=== PATIENT | male | born 1965 | race Caucasian/White ===

== ENCOUNTER 2022-12-25 11:30 | Day surgery (SDC) | payer OTHER ==
--- NOTE | 2022-12-23 14:28 | RAD REPORT ---
EXAM DESCRIPTION: RAD - Chest Pa And Lat (2 Views) - 12/23/2022 2:21 pm CLINICAL HISTORY: pre op for cath flow Chest pain. COMPARISON: Femur Left dated 03/19/2013 FINDINGS: The lungs are clear. The heart is normal in size. No displaced fractures. Sternotomy wires . IMPRESSION: No acute or concerning finding suspected. The USPSTF recommends annual screening for lung cancer with low-dose CT (LDCT) in adults aged 50 to 80 years who have a 20 pack-year smoking history and currently smoke or have quit within the past 15 years.
[2022-12-23 14:30] LABS: Absolute Lymphocytes (CBC) 2.5 K/uL (0.7-4.9); Hematocrit 47.1 % (39.6-49.0); Lymphocytes % 30.1 % (15.3-44.8); MCV 91.1 fL (80-100); MPV 7.8 fL (7.6-11.3); RBC Red Blood Cell Count 5.17 M/uL (4.33-5.43)
[2022-12-23 14:37] LABS: Protime INR 1.06
[2022-12-23 14:56] LABS: Potassium 4.2 mmol/L (3.5-5.1)
[2022-12-25] MEDS ORDERED: LIDOCAINE 1% 20 ML MDV ONE (13:10)
[2022-12-25] MEDS ORDERED: HEPA 1000U/500MLS 2,000 UNIT/1,000 ML BAG IV ONE (13:10)
[2022-12-25] MEDS ORDERED: HEPARIN 5000 UNIT/ML 1 ML VIAL ONE (13:11)
[2022-12-25] MEDS ORDERED: ASPIRIN 325 MG TAB ONE (13:11)
[2022-12-25] MEDS ORDERED: CLOPIDOGREL 75 MG TABLET ONE (13:11)
[2022-12-25] MEDS ORDERED: FENTANYL CITR 100 MCG/2 ML ONE (13:11)
[2022-12-25] MEDS ORDERED: VERAPAMIL HCL 10 MG/4 ML VIAL IV ONE (13:11)
[2022-12-25] MEDS ORDERED: TICAGRELOR 90 MG TABLET PO ONE (13:11)
[2022-12-25] MEDS ORDERED: MIDAZOLAM HCL 2 MG/2 ML INJ ONE ×2 (13:11→13:41)
[2022-12-25] MEDS ORDERED: ATROPINE SULF 1 MG/10 ML SYR IV ONE (13:12)
[2022-12-25] MEDS ORDERED: HEPARIN 10,000 UNIT/10 ML VIAL IV ONE (14:00)
[2022-12-25] MEDS ORDERED: REGADENOSON 0.4 MG/5 ML SYR IV ONE (14:00)
--- NOTE | 2022-12-25 16:02 | OP ---
Date of Procedure: 12/25/2022 Surgeon: IRENE HERNANDEZ Procedures Performed: 1.Selective coronary angiogram. 2.Left heart catheterization. 3.FFR of the mid RCA, moderate disease which was insignificant at 0.81. Access: Right radial artery 6-Bulgarian closed with TR band. Complications: None. Indication: Chest pain with abnormal stress test. Bleeding: Less than 10 mL. Anesthesia: Total sedation time was 30 minutes. Used fentanyl and Versed. Description Of Procedure: After risks, benefits, alternatives were explained, the patient agreed to procedure and signed informed consent. The patient was brought into the cardiac catheterization [facility], prepped and draped in the usual sterile fashion. Then, I accessed right radial artery using pediatric micropuncture kit, placed a 6-Bulgarian Slender sheath and took 5-Bulgarian Dryden 4.0 catheter in to the aortic root, engaged left main and the right coronary artery, took standard views and the cath eter was pushed over the wire into the LV, measured the LVEDP and pullback did not record any gradien t. Then, we gave systemic heparin to assure ACT level above 250 and then I took a Comet FFR wire int o the aortic root and pressures were equalized and then the wire was advanced into the distal RCA. F FR was performed using Lexiscan and then pulling the wire back, there was no drift. Then, final vince ogram was satisfactory. Then, I removed the catheter and sheath and placed TR band with good hemosta sis. Findings: 1.Left main; large and normal. 2.LAD; large vessel with no significant disease. Diagonal branches appear normal. 3.Left circumflex; [id number] sized vessel and the OM1 branch is large and has diffuse 40% st enosis. 4.RCA; large and dominant with mid long segment that has 50% to 60% stenosis, but FFR was 0.81. 5.LVEDP normal at 7 mmHg. Conclusion: 1.Moderate RCA stenosis and moderate OM1 stenosis. 2.Normal LVEDP. Recommendation: Medical management. SR/MODL Voice ID: [id number] Report ID: [id number]
[2022-12-25 16:36] VITALS: O2SAT 97
[2022-12-25 16:51] VITALS: BP 104/47
== END 2022-12-25 16:52 | disposition home or self-care (01) ==
LOC: CCL 11:30
PROVIDERS: ATTEND Internal Medicine
DX: I25.10 Atherosclerotic heart disease of native coronary artery without angina pectoris (principal); I73.9 Peripheral vascular disease, unspecified; I10 Essential (primary) hypertension; R09.89 Other specified symptoms and signs involving the circulatory and respiratory systems; E78.5 Hyperlipidemia, unspecified; F17.210 Nicotine dependence, cigarettes, uncomplicated; Z79.899 Other long term (current) drug therapy; Z82.49 Family history of ischemic heart disease and other diseases of the circulatory system
CPT/HCPCS: 85025; 80048; 36415; 85610; 85347; 85730; 71046; 93458; 93571; C1893; J2001; J1644 ×2; J2250; J3010; J2785; C1769; J0461

== ENCOUNTER 2024-07-24 08:54 | Observation (INO) | payer OTHER ==
--- OUTSIDE RECORDS SUMMARY | 2024-07-24 08:58 | XMS REPORT | Continuity of Care Document ---
Author Name Unknown Address [address] [place] [address] [address] th[address] Address [address] [facility] [place]. [address] [place] [address] Care Team Providers Care System Administration Advisor Name Role Phone Unavailable Unavailable Unavailable Encounters Start Date/Time End Date/Time Encounter Type Admission Type Attending Clinicians Care Facility Care Department Encounter ID Source 2024-05-01 09:42:46 2024-05-01 09:42:46 Outpatient [facility] [id number] Feliz Gallegos
[2024-07-24] MEDS ORDERED: IPRATROPIUM BROM 0.5MG/2.5ML ONE (09:09)
[2024-07-24] MEDS ORDERED: ALBUTEROL 2.5 MG/3 ML NEB SOL ONE (09:09)
[2024-07-24] MEDS ORDERED: NITROGLYCERIN 0.4 MG/TAB SL ONE (09:22)
[2024-07-24] MEDS ORDERED: ASPIRIN 81 MG CHEWABLE TABLET ONE (09:22)
[2024-07-24 09:27] LABS: Absolute Eosinophils 0.2 K/uL (0-0.5); Absolute Lymphocytes (CBC) 1.8 K/uL (0.7-4.9); Absolute Monocytes 0.5 K/uL (0.1-1.3); Absolute Neutrophil 6.9 K/uL (1.8-8.0); Basophils % 0.5 % (0-1.3); Eosinophils % 1.9 % (0-4.4); Hematocrit 42.4 % (39.6-49.0); MCH 30.1 pg (27.0-35.0); MCV 91.1 fL (80-100); MPV 8.1 fL (7.6-11.3); Neutrophils % 73.6 % (41.7-73.7); Platelets 210 thou/uL (152-406); RBC Red Blood Cell Count 4.65 M/uL (4.33-5.43); Red Cell Distribution Width 14.7 % (12.1-15.2)
[2024-07-24 09:29] LABS: PT Prothrombin Time 15.6 SECONDS (9.4-12.5); Protime INR 1.41
[2024-07-24 09:47] LABS: Albumin 4.1 g/dL (3.4-5.0); Albumin/Globulin Ratio 1.1 (1.1-1.8); Anion Gap 3.9 mEq/L (5.0-15.0); Bilirubin Direct 0.3 mg/dL (0-0.2); Bilirubin Indirect, Calculated 0.6 mg/dL (0.2-0.8); Bilirubin Total 0.9 mg/dL (0.2-1.0); Globulin 3.9 g/dL (2.3-3.5); Magnesium 2.1 mg/dL (1.6-2.4); Potassium 3.9 mEq/L (3.5-5.1); Troponin High Sensitivity 29.5 pg/mL (<58.9)
--- NOTE | 2024-07-24 10:07 | RAD REPORT ---
EXAM DESCRIPTION: CT - Head Brain Wo Cont - 07/24/2024 9:40 am CLINICAL HISTORY: DIZZINESS COMPARISON: No comparisons TECHNIQUE: Noncontrast head CT images were obtained without IV contrast. Multiplanar reformats were generated and reviewed. All CT scans are performed using dose optimization technique as appropriate and may include automated exposure control or mA/KV adjustment according to patient size. FINDINGS: No intracranial hemorrhage, mass, or edema. Midline structures are unremarkable. Mild diffuse parenchymal volume loss. Martini-white matter differentiation is preserved, without evidence of acute infarct. No abnormal extra- axial fluid collections. Mastoid air cells and visualized portions of the paranasal sinuses are clear. No acute bony findings. IMPRESSION: No evidence of an acute intracranial process.
--- NOTE | 2024-07-24 11:35 | RAD REPORT ---
EXAM DESCRIPTION: RADChest Single View07/24/2024 9:32 am CLINICAL HISTORY: CHEST PAIN COMPARISON: Chest Pa And Lat (2 Views) dated 12/23/2022; Head Brain Wo Cont dated 07/24/2024 TECHNIQUE: Portable AP view of the chest. FINDINGS: The lungs are clear. No pneumothorax or effusion. The cardiomediastinal contours are unch anged. IMPRESSION: No acute cardiopulmonary process.
--- NOTE | 2024-07-24 12:59 | ER ---
Nurse's Notes [facility] Name: Conor Rosado Jr Age: 58 yrs Sex: Male : 1965 Arrival Date: 07/24/2024 Time: 08:54 Bed 8 Private MD: Diagnosis: Dyspnea;Angina pectoris, unspecified Presentation: 07/24 09:08 Chief complaint: Patient states: he started having chest pressure Wednesday, that got ap3 worse last night. patient reports his pain to be a pressure feeling along with shortness of breath. Coronavirus screen: At this time, the client does not indicate any symptoms associated with coronavirus-19. Ebola Screen: No symptoms or risks identified at this time. Initial Sepsis Screen: Does the patient meet any 2 criteria? No. Patient's initial sepsis screen is negative. Does the patient have a suspected source of infection? No. Patient's initial sepsis screen is negative. Risk Assessment: Do you want to hurt yourself or someone else? Patient reports no desire to harm self or others. Onset of symptoms was July 22, 2024. 09:08 Method Of Arrival: Ambulatory ap3 09:08 Acuity: BECKY 2 ap3 Triage Assessment: 09:11 General: Appears uncomfortable, Behavior is cooperative, appropriate for age. Pain: ap3 Complains of pain in chest Quality of pain is described as pressure. Neuro: Level of Consciousness is awake, alert, obeys commands, Oriented to person, place, time, situation. Cardiovascular: Reports chest pain, shortness of breath. Respiratory: Airway is patent Respiratory effort is even, unlabored, Respiratory pattern is regular, symmetrical. Historical: - Allergies: 09:09 No Known Allergies; ap3 - Home Meds: 09:09 Xarelto oral [Active]; Metoprolol Tartrate Oral [Active]; Lisinopril Oral [Active]; ap3 aspirin 81 mg Oral tablet,chewable [Active]; - PMHx: 09:09 Atrial fibrillation; Hypertensive disorder; ap3 - Immunization history:: Client reports having NOT received the Covid vaccine. - Infectious Disease History:: Denies. - Social history:: Smoking status: Patient reports the use of cigarette tobacco products, smokes one pack cigarettes per day. Screenin:20 [facility] ED Fall Risk Assessment (Adult) History of falling in the last 3 months, dd2 including since admission No falls in past 3 months (0 pts) Confusion or Disorientation No (0 pts) Intoxicated or Sedated No (0 pts) Impaired Gait No (0 pts) Mobility Assist Device Used No (0 pt) Altered Elimination No (0 pt) Score/Fall Risk Level 0 - 2 = Low Risk Oriented to surroundings, Maintained a safe environment, Hourly rounding (assess needs \T\ fall precautionary measures) done. Abuse screen: Denies threats or abuse. Nutritional screening: No deficits noted. Tuberculosis screening: No symptoms or risk factors identified. Assessment: 09:20 General: Appears in no apparent distress. Behavior is calm, cooperative. Pain: dd2 Complains of pain in chest Pain does not radiate. Pain Quality of pain is described as pressure, Pain began 2-3 days ago. Neuro: No deficits noted. Cardiovascular: No deficits noted. Reports chest pain, Heart tones S1 S2 Rhythm is atrial fibrillation With PVC's Chest pain quality is pressure. Respiratory: No deficits noted. GI: No deficits noted. : No deficits noted. EENT: No deficits noted. Derm: No deficits noted. Musculoskeletal: No deficits noted. Vital Signs: 09:08 BP 146 / 88; Pulse 55; Resp 18; Temp 98; Pulse Ox 98% ; Weight 104.33 kg; Height 6 ft. ap3 1 in. ; 09:54 BP 119 / 49; Pulse 42; Resp 15; Pulse Ox 98% ; dd2 10:41 BP 103 / 56; Pulse 37; Resp 15; Pulse Ox 97% ; dd2 11:48 BP 111 / 64; Pulse 44; Resp 15; Pulse Ox 94% ; dd2 09:08 Body Mass Index 30.34 (104.33 kg, 185.42 cm) ap3 ED Course: 08:55 Patient arrived in ED. mg5 08:58 Antoine Villanueva PA is PHCP. cp 08:58 Anil Sena MD is Attending Physician. cp 09:06 MARJAN SMITH, KEVIN is Primary Nurse. dd2 09:09 Triage completed. ap3 09:12 EKG done, by ED staff, reviewed by Antoine GILBERT. ap3 09:12 Basic Metabolic Panel Sent. ko1 09:12 CBC with Diff Sent. ko1 09:12 LFT's Sent. ko1 09:12 Magnesium Sent. ko1 09:12 NT PRO-BNP Sent. ko1 09:12 PT-INR Sent. ko1 09:12 Troponin HS Sent. ko1 09:20 No provider procedures requiring assistance completed. Initial Neb Treatment Given as dd2 ordered Patient tolerated procedure well without adverse effect. Inserted saline lock: 20 gauge in right antecubital area, using aseptic technique. Blood collected. Flushed with 10 mL NS. Patient maintains SpO2 saturation greater than 95% on room air. 09:20 Patient has correct armband on for positive identification. Bed in low position. Call dd2 light in reach. Side rails up X 1. Provided Education on: CALL LIGHT, MEDICATIONS, LABS. Client placed on continuous cardiac and pulse oximetry monitoring. NIBP monitoring applied. case monitor on. Door closed. Warm blanket given. 09:20 Arm band placed on left wrist. Patient placed in an exam room, on a stretcher, on dd2 library monitor. 09:34 XRAY Chest (1 view) In Process Unspecified. EDMS 09:41 CT Head Brain wo Cont In Process Unspecified. EDMS 12:58 Yasir Morgan is Hospitalizing Provider. cp 13:47 at the bedside discussing plan of care. ane 13:55 CM met with and his sister Zoë at the bedside in the ED exam room. ane Patient identified by name and . Demographic sheet confirmed. Mr Rosado states he lives alone in a single story home. Patient reports prior to admission, he performs ADLs independently and without physical limitations. Patient reports he does not have an MPOA in place at this time. He states his prefers to return home upon discharge and that he will drive himself home when he is discharged. CM team will continue to follow and coordinate care. 15:14 Patient admitted, IV remains in place. dd2 Administered Medications: 09:11 Drug: DuoNeb Nebulize (2.5 mg - 0.5 mg) 3 ml Nebulizer once Route: Nebulizer; ko1 09:41 Follow up: Response: No adverse reaction dd2 09:23 Drug: Nitroglycerin Sublingual 0.4 mg Sublingual once Route: Sublingual; dd2 09:26 Follow up: Response: No adverse reaction dd2 09:23 Drug: Aspirin PO Chewable Tablet 324 mg PO once; 81 mg tablets x 4 Route: PO; dd2 09:53 Follow up: Response: No adverse reaction dd2 Medication: 09:20 VIS not applicable for this client. dd2 Outcome: 12:59 Decision to Hospitalize by Provider. cp 15:14 Admitted to Identification And Records Commander accompanied by nurse, via stretcher, with chart, dd2 15:14 Condition: stable 15:14 Instructed on the need for admit, 15:15 Patient left the ED. dd2 Signatures: Dispatcher [employer] EDMS Antoine Villanueva PA PA cp Cora Arevalo RN RN ap3 Taylor Logan, KEVIN RN teja1 Renate Parks mg5 Bhavya Flores RN RN ane DAVIS, DIANA, RN RN dd2
--- NOTE | 2024-07-24 13:00 | EDPHYS ---
Physician Documentation [facility] Name: Conor Rosado Jr Age: 58 yrs Sex: Male : 1965 Arrival Date: 07/24/2024 Time: 08:54 Bed 8 Private MD: ED Physician Anil Sena HPI: 07/24 09:10 This 58 yrs old Male presents to ER via Ambulatory with complaints of Chest Pain. cp 09:10 The patient or guardian reports chest pain that is located primarily in the anterior cp chest wall, left. Onset: 2 day(s) ago. 09:10 Associated signs and symptoms: Pertinent positives: dizziness, shortness of breath, cp Pertinent negatives: abdominal pain, diaphoresis, headache, lower extremity swelling, syncope, vomiting. The chest pain is described as a pressure. Duration: The patient or guardian reports multiple episodes, that are intermittent. Modifying factors: the symptoms are aggravated by activity. Historical: - Allergies: 09:09 No Known Allergies; ap3 - Home Meds: 09:09 Xarelto oral [Active]; Metoprolol Tartrate Oral [Active]; Lisinopril Oral [Active]; ap3 aspirin 81 mg Oral tablet,chewable [Active]; - PMHx: 09:09 Atrial fibrillation; Hypertensive disorder; ap3 - Immunization history:: Client reports having NOT received the Covid vaccine. - Infectious Disease History:: Denies. - Social history:: Smoking status: Patient reports the use of cigarette tobacco products, smokes one pack cigarettes per day. ROS: 09:15 Constitutional: Negative for body aches, chills, fever, poor PO intake, cp 09:15 Eyes: Negative for injury, pain, redness, and discharge, cp 09:15 ENT: Negative for drainage from ear(s), ear pain, sore throat, difficulty swallowing, difficulty handling secretions, 09:15 Cardiovascular: Positive for chest pressure, Negative for edema, palpitations, 09:15 Respiratory: Positive for shortness of breath, on exertion. Negative for cough, 09:15 Abdomen/GI: Negative for abdominal pain, vomiting, diarrhea, constipation, 09:15 Skin: Negative for cellulitis, rash, 09:15 Neuro: Positive for dizziness, Negative for altered mental status, headache, weakness, Exam: 09:20 Constitutional: The patient appears in no acute distress, alert, awake, cp non-diaphoretic, non-toxic, well developed, well nourished, uncomfortable, 09:20 Head/Face: Normocephalic, atraumatic. cp 09:20 Eyes: Periorbital structures: appear normal, Conjunctiva: normal, no exudate, no injection, Sclera: no appreciated abnormality, Lids and lashes: appear normal, bilaterally, 09:20 ENT: External ear(s): are unremarkable, Nose: is normal, Mouth: Lips: moist, Oral mucosa: pink and intact, moist, Posterior pharynx: Airway: no evidence of obstruction, patent, 09:20 Neck: ROM/movement: is normal, is supple, without pain, no range of motions limitations, 09:20 Chest/axilla: Inspection: normal, Palpation: crepitus, is not appreciated, tenderness, is not appreciated, 09:20 Cardiovascular: Rate: bradycardic, Rhythm: regular, Edema: is not appreciated, JVD: is not appreciated, 09:20 Respiratory: the patient does not display signs of respiratory distress, Respirations: labored breathing, that is mild, Breath sounds: decreased breath sounds, that are mild, throughout, stridor, is not appreciated, wheezing: that is mild, is heard diffusely, 09:20 Abdomen/GI: Inspection: abdomen appears normal, Palpation: abdomen is soft and non-tender, in all quadrants, 09:20 Back: pain, is absent, ROM is normal, 09:20 Neuro: Orientation: to person, place \T\ time. Mentation: is normal, Cerebellar function: is grossly normal, Motor: moves all fours, strength is normal, Sensation: no obvious gross deficits, Vital Signs: 09:08 BP 146 / 88; Pulse 55; Resp 18; Temp 98; Pulse Ox 98% ; Weight 104.33 kg; Height 6 ft. ap3 1 in. ; 09:54 BP 119 / 49; Pulse 42; Resp 15; Pulse Ox 98% ; dd2 10:41 BP 103 / 56; Pulse 37; Resp 15; Pulse Ox 97% ; dd2 11:48 BP 111 / 64; Pulse 44; Resp 15; Pulse Ox 94% ; dd2 09:08 Body Mass Index 30.34 (104.33 kg, 185.42 cm) ap3 MDM: 08:58 Patient medically screened. cp 11:40 HEART Score: History: Highly Suspicious (2), ECG: Non specific repolarization cp disturbance / LBTB / PM (1), Age: > 45 and < 65 years (1), Risk Factors: 1 or 2 risk factors (1), [Hypertension] [Active Smoker] Troponin: < or = 1 x Normal Limit (0). 11:45 Data reviewed: vital signs, nurses notes, lab test result(s), EKG, radiologic studies, cp plain films, and as a result, I will admit patient. 11:45 Differential diagnosis: abnormal EKG, acute myocardial infarction, acute pericarditis, cp anxiety, coronary artery disease congestive heart failure pleurisy, pneumonia, pneumothorax, stable angina, unstable angina, COPD. The patient was given aspirin in the Emergency Department. Consideration of Admission/Observation Patient was admitted/placed on observation. I considered the following discharge prescriptions or medication management in the emergency department Medications were administered in the Emergency Department. See JAN. 07/24 09:06 Order name: Basic Metabolic Panel; Complete Time: 10:07 07/24 10:07 Interpretation: Normal except: CO2 33; ANION GAP 3.9; GLUC 120. 07/24 09:06 Order name: CBC with Diff; Complete Time: 10:07 07/24 09:06 Order name: LFT's; Complete Time: 10:07 07/24 10:21 Interpretation: Normal except: BILID 0.3; GLOB 3.9. 07/24 09:06 Order name: Magnesium; Complete Time: 10:07 07/24 09:06 Order name: NT PRO-BNP; Complete Time: 10:07 07/24 10:21 Interpretation: Reviewed. 07/24 09:06 Order name: PT-INR; Complete Time: 10:07 07/24 09:06 Order name: Troponin HS; Complete Time: 10:07 07/24 12:03 Order name: Troponin High Sensitivity 07/24 13:16 Order name: T4 Free [facility] 07/24 13:16 Order name: Thyroid Stimulating Hormone [facility] 07/24 13:16 Order name: Basic Metabolic Panel [facility] 07/24 13:16 Order name: Basic Metabolic Panel [facility] 07/24 13:16 Order name: Basic Metabolic Panel [facility] 07/24 13:16 Order name: Basic Metabolic Panel EDMS 07/24 13:16 Order name: Basic Metabolic Panel EDMS 07/24 13:16 Order name: Basic Metabolic Panel EDMS 07/24 13:16 Order name: CBC with Automated Diff EDMS 07/24 13:16 Order name: CBC with Automated Diff EDMS 07/24 13:16 Order name: CBC with Automated Diff EDMS 07/24 13:16 Order name: CBC with Automated Diff EDMS 07/24 13:16 Order name: CBC with Automated Diff EDMS 07/24 13:16 Order name: CBC with Automated Diff EDMS 07/24 13:16 Order name: Hemoglobin A1c EDMS 07/24 13:16 Order name: Hemoglobin A1c EDMS 07/24 13:16 Order name: Lipid Profile EDMS 07/24 13:16 Order name: Lipid Profile EDMS 07/24 13:16 Order name: Magnesium EDMS 07/24 13:16 Order name: Magnesium EDMS 07/24 13:16 Order name: Magnesium EDMS 07/24 13:16 Order name: Magnesium EDMS 07/24 13:16 Order name: Magnesium EDMS 07/24 13:16 Order name: Magnesium EDMS 07/24 13:16 Order name: Phosphorus EDMS 07/24 13:16 Order name: Phosphorus EDMS 07/24 13:16 Order name: Phosphorus EDMS 07/24 13:16 Order name: Phosphorus EDMS 07/24 13:16 Order name: Phosphorus EDMS 07/24 13:16 Order name: Phosphorus EDMS 07/24 13:16 Order name: Troponin High Sensitivity EDMS 07/24 13:16 Order name: Troponin High Sensitivity EDMS 07/24 13:16 Order name: Troponin High Sensitivity EDMS 07/24 09:06 Order name: XRAY Chest (1 view); Complete Time: 11:37 cp 07/24 11:37 Interpretation: Report review. cp 07/24 09:32 Order name: CT Head Brain wo Cont; Complete Time: 10:21 cp 07/24 10:21 Interpretation: Report reviewed. cp 07/24 13:16 Order name: Echo with Doppler EDMS 07/24 09:06 Order name: Cardiac monitoring; Complete Time: 09:12 cp 07/24 09:06 Order name: EKG - Nurse/Tech; Complete Time: 09:12 cp 07/24 09:06 Order name: IV Saline Lock; Complete Time: 09:12 cp 07/24 09:06 Order name: Labs collected and sent; Complete Time: 09:12 cp 07/24 09:06 Order name: O2 Per Protocol; Complete Time: 09:12 cp 07/24 09:06 Order name: O2 Sat Monitoring; Complete Time: 09:12 cp Administered Medications: 09:11 Drug: DuoNeb Nebulize (2.5 mg - 0.5 mg) 3 ml Nebulizer once Route: Nebulizer; ko1 09:41 Follow up: Response: No adverse reaction dd2 09:23 Drug: Nitroglycerin Sublingual 0.4 mg Sublingual once Route: Sublingual; dd2 09:26 Follow up: Response: No adverse reaction dd2 09:23 Drug: Aspirin PO Chewable Tablet 324 mg PO once; 81 mg tablets x 4 Route: PO; dd2 09:53 Follow up: Response: No adverse reaction dd2 Disposition Summary: 07/24/24 12:59 Hospitalization Ordered Notes: Hospitalization Status: Observation cp Provider: Yasir Morgan cp Condition: Stable cp Problem: new cp Symptoms: have improved cp Bed/Room Type: Standard cp Location: [facility] ER HOLD(07/24/24 13:49) bd Room Assignment: ERHOLD-(07/24/24 13:49) bd Diagnosis - Dyspnea cp - Angina pectoris, unspecified cp Forms: - Medication Reconciliation Form cp - SBAR form cp - Leadership Thank You Letter cp Addendum: 07/28/2024 07:44 I was immediately available for consultation during this patient's visit. I did not e c2 personally see the patient or discuss the patient with the CRISTIN. . Signatures: Dispatcher [employer] EDMS Summer Marc bd Antoine Villanueva PA PA cp Cora Arevalo RN RN ap3 Taylor Logan RN RN ko1 Anil Sena MD MD ec2 MARJAN SMITH, RN RN dd2 Corrections: (The following items were deleted from the chart) 07/24 09:07 09:07 BASIC METABOLIC PANEL+C.LAB.BRZ ordered. EDMS EDMS 09:07 09:07 CBC+H.LAB.BRZ ordered. EDMS EDMS 09:07 09:07 HEPATIC FUNCTION+C.LAB.BRZ ordered. EDMS EDMS 09:07 09:07 MAGNESIUM+C.LAB.BRZ ordered. EDMS EDMS 09:07 09:07 PROBNP+C.LAB.BRZ ordered. EDMS EDMS 09:07 09:07 PROTIME (+INR)+COAG.LAB.BRZ ordered. EDMS EDMS 09:07 09:07 Troponin High Sensitivity+C.LAB.BRZ ordered. EDMS EDMS 09:07 09:07 Chest Single View+RAD.RAD.BRZ ordered. EDMS EDMS 09:32 09:32 Head Brain Wo Cont+CT.RAD.BRZ ordered. EDMS EDMS 13:46 12:59 cp bd 13:49 12:59 Telemetry/MedSurg (observation) cp bd 13:49 13:46 430 bd bd 13:49 13:49 bd bd
[2024-07-24] MEDS ORDERED: ACETAMINOPHEN 325 MG TABLET PO PRN (13:07)
[2024-07-24] MEDS ORDERED: MORPHINE 2 MG/ML SYR IV PRN (13:07)
[2024-07-24] MEDS ORDERED: NITROGLYCERIN 0.4 MG/TAB SL PRN (13:15)
--- NOTE | 2024-07-24 13:22 | P.HP ---
Certification for Inpatient Patient admitted to: Observation With expected LOS: <2 Midnights Patient will require the following post-hospital care: None Practitioner: I am a practitioner with admitting privileges, knowledge of patient current condition, hospital course, and medical plan of care. Services: Services provided to patient in accordance with Admission requirements found in Title 42 Section 412.3 of the Code of Federal Regulations Patient History Date of Service: 07/24/24 History of Present Illness: Conor Rosado is a 58 year old male with Pmhx atrial fibrillation and hypertensive disorder who presents to the ED with chief complaint of chest tightness and shortness of breath associated with dizziness, lightheadedness and nausea. He reports seeing his heart rate drop during times of chest pressure. He reports going to Dr. Rashid's office and was unable to be seen, he was directed to come to the ED. While in the ED he was given nitroglycerin that helped alleviate the chest pressure. Upon evaluation he is standing, in no acute distress, chest pain and pressure relieved, complaining of being thirsty. He reports having a heart history with atrial fibrillation and is currently taking Xarelto. He reports smoking 1 pack cigarettes daily which is dramatically decreased. Troponin and EKG both negative. Initial vitals BP 146 / 88; Pulse 55; Resp 18; Temp 98; Pulse Ox 98% Laboratory evaluation troponin 29.5, BNP 1274, H&H Chest x-ray reports " The lungs are clear. No pneumothorax or effusion. The cardiomediastinal contours are unchanged. IMPRESSION: No acute cardiopulmonary process." CT head reports "No intracranial hemorrhage, mass, or edema. Midline structures are unremarkable. Mild diffuse parenchymal volume loss. Martini-white matter differentiation is preserved, without evidence of acute infarct. No abnormal extra-axial fluid collections. Mastoid air cells and visualized portions of the paranasal sinuses are clear. No acute bony findings. IMPRESSION: No evidence of an acute intracranial process Conor will be admitted to hospitalist service for further evaluation of chest pain, Dr. Siddiqi consulted Allergies No Known Allergies Allergy (Verified 12/23/22 13:58) Home Medications: Aspirin 07/24/24 Atorvastatin Calcium 07/24/24 Buspirone HCl [Buspar*] 07/24/24 Eszopiclone 07/24/24 Lisinopril [Zestril] 07/24/24 Metoprolol Tartrate 07/24/24 Rivaroxaban [Xarelto] 07/24/24 - Past Medical/Surgical History -: Atrial fibrillation on Xarelto -: Hypertension -: CAD Past Surgical History: Reviewed- Non-Contributory - Social History Smoking Status: Current every day smoker (one pack daily) Alcohol use: Yes CD- Drugs: No Review of Systems Cardiovascular: Chest Pain (pressure), Light Headedness Gastrointestinal: Nausea Neurological: Other (dizziness) Physical Examination - Physical Exam General: Alert, In no apparent distress, Oriented x3 HEENT: Atraumatic, Normocephalic, PERRLA Neck: Supple, JVD not distended Respiratory: Clear to auscultation bilaterally, Normal air movement Cardiovascular: Normal pulses, Regular rate/rhythm, Normal S1 S2 Capillary refill: <2 Seconds Gastrointestinal: Normal bowel sounds, Soft and benign Musculoskeletal: No clubbing Integumentary: No rashes Neurological: Normal speech, Normal tone - Studies Laboratory Data (last 24 hrs) 07/24/24 07/24/24 07/24/24 09:13 09:13 09:13 WBC 9.30 Hgb 14.0 Hct 42.4 Plt Count 210 PT 15.6 H INR 1.41 Sodium 136 Potassium 3.9 BUN 12 Creatinine 0.94 Glucose 120 H Magnesium 2.1 Total Bilirubin 0.9 AST 26 ALT 47 Alkaline Phosphatase 94 Assessment and Plan - Plan Assessment and plan Chest pain rule out ACS History of CAD - EKG: No obvious ST segment changes - troponin 28.7/29.5, Serial pending - transthoracic echocardiogram - chest x-ray reports " The lungs are clear. No pneumothorax or effusion. The cardiomediastinal contours are unchanged. IMPRESSION: No acute cardiopulmonary process." - Consult Cardiology - recommend heart cath - S/P aspirin 324 mg PO x 1 in ED - Start daily baby aspirin and statin - Symptom control with PRN acetaminophen, nitroglycerin, morphine - continuous telemetry - TSH/FreeT4, A1C, lipid panel pending Atrial fibrillation Hypertension -Continue home medication -hold Eliquis until cardiology allows Smoking abuse -cessation education provided -he reports decreasing to one pack of cigarettes daily DVT PPx SCDs Full code LOS 24-hour OBS Discharge Plan: Home Plan to discharge in: 24 Hours - Advance Directives Does patient have a Living Will: No Does patient have a Durable POA for Healthcare: No
--- NOTE | 2024-07-24 14:20 | P.CNS ---
Date of Consult: 07/24/24 Chief Complaint: Chest pain, palpitations History of Present Illness: Patient with PMH of atrial fibrillation, CAD, presented with chest pressure sensation that has been going for last few days, associated with skipping heart beats, fast and slow HR, and SOB, no syncope. Allergies No Known Allergies Allergy (Verified 12/23/22 13:58) Home medications list reviewed: Yes Home Medications: Aspirin 07/24/24 Atorvastatin Calcium 07/24/24 Buspirone HCl [Buspar*] 07/24/24 Eszopiclone 07/24/24 Lisinopril [Zestril] 07/24/24 Metoprolol Tartrate 07/24/24 Rivaroxaban [Xarelto] 07/24/24 Review of Systems 10-point ROS is otherwise unremarkable Physical Examination General: Alert, In no apparent distress HEENT: Atraumatic, PERRLA, Mucous membr. moist/pink, EOMI, Sclerae nonicteric Neck: Supple, 2+ carotid pulse no bruit, No LAD, Without JVD or thyroid abnormality Respiratory: Clear to auscultation bilaterally, Normal air movement Cardiovascular: Edema (+1 BL), Irregular heart rate/rhythm Gastrointestinal: Normal bowel sounds, No tenderness Musculoskeletal: No tenderness Integumentary: No rashes Neurological: Normal gait, Normal speech, Normal tone, Normal affect Lymphatics: No axilla or inguinal lymphadenopathy Laboratory Data (last 24 hrs) 07/24/24 07/24/24 07/24/24 09:13 09:13 09:13 WBC 9.30 Hgb 14.0 Hct 42.4 Plt Count 210 PT 15.6 H INR 1.41 Sodium 136 Potassium 3.9 BUN 12 Creatinine 0.94 Glucose 120 H Magnesium 2.1 Total Bilirubin 0.9 AST 26 ALT 47 Alkaline Phosphatase 94 - Problems (1) CAD (coronary artery disease) Current Visit: Yes Status: Acute Plan: patient coronary angiogram last year shows moderate RCA disease, FFR was bordeline normal. Plan for repeated coronary angiogram since patient is having unstable angina picture ASA 81 mg daily Lipitor 40 mg daily (2) Atrial fibrillation Current Visit: Yes Status: Acute Plan: Patient is rate controlled, HR is 50s, continue to monitor on telemetery. continue Xarelto (3) HTN (hypertension) Current Visit: Yes Status: Acute Plan: continue home medications and monitor
[2024-07-24 14:28] VITALS: BMI 30.3
[2024-07-24] MEDS ORDERED: HEPA 1000U/500MLS 2,000 UNIT/1,000 ML BAG IV ONE (14:37)
[2024-07-24] MEDS ORDERED: CLOPIDOGREL 75 MG TABLET ONE (14:38)
[2024-07-24] MEDS ORDERED: HEPARIN 10,000 UNIT/10 ML VIAL IV ONE (14:38)
[2024-07-24] MEDS ORDERED: HEPARIN 5000 UNIT/ML 1 ML VIAL ONE (14:38)
[2024-07-24] MEDS ORDERED: ATROPINE SULF 1 MG/10 ML SYR IV ONE (14:38)
[2024-07-24] MEDS ORDERED: LIDOCAINE 1% 20 ML MDV ONE (14:38)
[2024-07-24] MEDS ORDERED: TICAGRELOR 90 MG TABLET PO ONE (14:39)
[2024-07-24] MEDS ORDERED: NA CHLORIDE 0.9% 500 ML ONE (14:42)
[2024-07-24] MEDS ORDERED: MIDAZOLAM HCL 2 MG/2 ML INJ ONE (15:19)
[2024-07-24] MEDS ORDERED: FENTANYL CITR 100 MCG/2 ML ONE (15:19)
[2024-07-24 17:25] VITALS: O2SAT 95
[2024-07-24 17:48] LABS: Thyroid Stimulating Hormone 1.24 uIU/mL (0.358-3.740)
[2024-07-24] MEDS: ATORVASTATIN 40 MG TAB PO SCH (21:33)
--- NOTE | 2024-07-25 02:54 | OP ---
Date of Procedure: 07/24/2024 Surgeon: Ancelmo Siddiqi Procedures Performed: 1.Left heart catheterization. 2.Selective coronary angiogram. Indication For Procedures: Unstable angina, non CAD. Complications: None. Estimated Blood Loss: Less than 50 cc. Access: Right radial, closed by TR band. Sedation Time: 20 minutes with 1 of Versed and 25 of fentanyl. Description Of Procedure: After risks, benefits, alternatives were explained to the patient, the pat ient agreed to proceed with procedure and signed informed consent. 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 laborer operator, prepped and draped in sterile fashion. Time-out was performed. Sedation was administer ed. Next, ultrasound-guided right radial access was obtained. [place] 4 catheter was advanced over th e J-wire into the LV cavity. LVEDP was obtained. Same catheter was used for selective angiogram of the left and right coronary systems. At the end of the procedure, catheter was removed over a J-wire . Sheath was removed. TR band was applied. Hemostasis was achieved. The patient was moved back to Recovery in stable condition. Findings: 1.Left main normal. 2.LAD: Proximal mild luminal irregularities, then mid moderate intramyocardial bridge, then distal mild luminal irregularities. 3.Left circ: Mild LI. 4.OM1: Mid 40% disease and mild LI. 5.RCA: Proximal significant tortuosity, then mid diffuse 50% disease followed by mild luminal irreg ularities, RPDA/RPLV mild luminal regularities. 6.LVEDP 13 mmHg. Assessment And Plan: 1.[id number] mid RCA disease and OM1 disease. 2.Moderate mid LAD intramyocardial bridge. Plan is to continue aggressive medical treatment for CAD, avoid nitrates and calcium channel blockers as might worsen his intramyocardial bridge. GRANT/MODL Voice ID: [id number] Report ID: [id number]
[2024-07-25 08:25] LABS: Absolute Eosinophils 0.2 K/uL (0-0.5); Absolute Lymphocytes (CBC) 1.7 K/uL (0.7-4.9); Absolute Monocytes 0.6 K/uL (0.1-1.3); Absolute Neutrophil 7.1 K/uL (1.8-8.0); Basophils % 0.4 % (0-1.3); Eosinophils % 2.2 % (0-4.4); Hematocrit 42.3 % (39.6-49.0); Hemoglobin 13.7 g/dL (13.6-17.9); Lymphocytes % 17.6 % (15.3-44.8); MCH 29.6 pg (27.0-35.0); MCHC 32.4 g/dL (32.0-36.0); MCV 91.2 fL (80-100); MPV 8.4 fL (7.6-11.3); Monocytes % 6.2 % (3.3-12.3); Neutrophils % 73.6 % (41.7-73.7); Platelets 208 thou/uL (152-406); RBC Red Blood Cell Count 4.64 M/uL (4.33-5.43); Red Cell Distribution Width 14.6 % (12.1-15.2)
[2024-07-25 08:38] LABS: Anion Gap 4.3 mEq/L (5.0-15.0); Magnesium 2.2 mg/dL (1.6-2.4); Phosphorus 3.1 mg/dL (2.5-4.9); Potassium 4.3 mEq/L (3.5-5.1)
[2024-07-25] MEDS: ASPIRIN EC 81 MG TAB PO SCH (08:58)
--- NOTE | 2024-07-25 10:31 | P.PN ---
Subjective Date of Service: 07/25/24 Chief Complaint: Chest pain, palpitations Subjective: No new changes, No C/O voiced, Tolerating diet, Ambulating, Improving Review of Systems 10-point ROS is otherwise unremarkable Physical Examination - Vital Signs Temperature: 97.1 F Blood Pressure: 131/66 Pulse: 42 Respirations: 16 Pulse Ox (%): 95 - Physical Exam General: Alert, In no apparent distress HEENT: Atraumatic, PERRLA, EOMI Neck: Supple, JVD not distended Respiratory: Clear to auscultation bilaterally, Normal air movement Cardiovascular: Irregular heart rate/rhythm Gastrointestinal: Normal bowel sounds, No tenderness Musculoskeletal: No tenderness Integumentary: No rashes Neurological: Normal speech, Normal tone, Normal affect Lymphatics: No axilla or inguinal lymphadenopathy - Studies Medications List Reviewed: Yes Assessment And Plan - Current Problems (Diagnosis) (1) CAD (coronary artery disease) Current Visit: Yes Status: Acute Plan: patient coronary angiogram done this admission and shows moderate RCA disease, unchanaged from prior angiogram ASA 81 mg daily Lipitor 40 mg daily (2) Atrial fibrillation Current Visit: Yes Status: Acute Plan: Patient is rate controlled, HR is 50s, continue to monitor on telemetery. No pauses overnight Hold BB or CCB continue Xarelto follow up in clinic for event monitor. (3) HTN (hypertension) Current Visit: Yes Status: Acute Plan: continue home lisinopril
[2024-07-25 12:19] VITALS: BP 144/53; TEMP 97.3
--- NOTE | 2024-07-25 12:43 | EKG ---
Test Date: 2024-07-24 Test Time: 09:04:20 Jigsaw Operator: ANSLEY MEASUREMENT RESULTS: Intervals: Rate: 57 SC: QRSD: 148 QT: 468 QTc: 455 [place]: P: SC: QRS: -88 T: 33 INTERPRETIVE STATEMENTS: Atrial fibrillation with premature ventricular or aberrantly conducted complexes Right bundle branch block Left anterior fascicular block Bifascicular block Abnormal ECG No previous ECG available for comparison Electronically Signed On 07-25-24 12:40:22 CDT by Ancelmo Siddiqi
--- NOTE | 2024-07-25 15:22 | P.DS ---
Admission Date: 07/24/24 Discharge Date: 07/25/24 Disposition: ROUTINE DISCHARGE Discharge Condition: GOOD Reason for Admission: Chest pain, palpitations Consultations: CardiologyDr. Siddiqi Procedures: [facility] 07/24-no stents, medical management Brief History of Present Illness: Conor Rosado is a 58 year old male with Pmhx atrial fibrillation and hypertensive disorder who presents to the ED with chief complaint of chest tightness and shortness of breath associated with dizziness, lightheadedness and nausea. He reports seeing his heart rate drop during times of chest pressure. Hospital Course: Assessment Chest pain rule out ACS History of CAD Atrial fibrillation Hypertension Tobacco use disorder Patient was admitted to the hospital for chest pain/unstable angina. He underwent coronary angiogram on 07/24 which showed mild to moderate mid RCA disease and OM1 disease. Moderate mid LAD intramyocardial bridge. Cardiology recommends continuing aggressive medical treatment for coronary artery disease, avoiding nitrates and calcium channel blockers given they may worsen the intramyocardial bridge. Overnight patient has been bradycardic in the high 30s to mid 50s, no pauses noted currently in sinus rhythm. Cardiology recommends discontinuing his metoprolol and have him follow-up in the clinic to arrange for an event monitor. Patient feeling well at this time, denies chest pain or shortness of breath, ambulatory without difficulty. Please discontinue/stop taking metoprolol-either kind You may continue your other home medications including your lisinopril, Xarelto, aspirin, atorvastatin. Please follow-up with Dr. Siddiqi in the clinic Physical Exam General: Alert, In no apparent distress, Oriented x3 HEENT: Atraumatic, Normocephalic, PERRLA Neck: Supple, JVD not distended Respiratory: Clear to auscultation bilaterally, Normal air movement Cardiovascular: Normal pulses, Regular rate/rhythm, Normal S1 S2 Capillary refill: <2 Seconds Gastrointestinal: Normal bowel sounds, Soft and benign Musculoskeletal: No clubbing Integumentary: No rashes Neurological: Normal speech, Normal tone Vital Signs/Physical Exam: Temp Pulse Resp BP Pulse Ox 97.3 F 45 L 16 144/53 H 96 07/25/24 12:00 07/25/24 12:00 07/25/24 12:00 07/25/24 12:00 07/25/24 12:00 Laboratory Data at Discharge: WBC 9.60 thou/uL (4.3-10.9) 07/25/24 07:56 Hgb 13.7 g/dL (13.6-17.9) 07/25/24 07:56 Hct 42.3 % (39.6-49.0) 07/25/24 07:56 Plt Count 208 thou/uL (152-406) 07/25/24 07:56 PT 15.6 SECONDS (9.4-12.5) H 07/24/24 09:13 INR 1.41 07/24/24 09:13 Sodium 134 mEq/L (136-145) L 07/25/24 07:56 Potassium 4.3 mEq/L (3.5-5.1) 07/25/24 07:56 BUN 12 mg/dL (7-18) 07/25/24 07:56 Creatinine 0.83 mg/dL (0.70-1.30) 07/25/24 07:56 Glucose 100 mg/dL (74-106) 07/25/24 07:56 Phosphorus 3.1 mg/dL (2.5-4.9) 07/25/24 07:56 Magnesium 2.2 mg/dL (1.6-2.4) 07/25/24 07:56 Total Bilirubin 0.9 mg/dL (0.2-1.0) 07/24/24 09:13 AST 26 U/L (15-37) 07/24/24 09:13 ALT 47 U/L (16-61) 07/24/24 09:13 Alkaline Phosphatase 94 U/L (45-117) 07/24/24 09:13 Triglycerides 51 mg/dL (<150) 07/25/24 07:56 Cholesterol 91 mg/dL (<200) 07/25/24 07:56 HDL Cholesterol 44 mg/dL (40-60) 07/25/24 07:56 Cholesterol/HDL Ratio 2.07 07/25/24 07:56 Home Medications: Aspirin 07/24/24 Atorvastatin Calcium 07/24/24 Buspirone HCl [Buspar*] 07/24/24 Eszopiclone 07/24/24 Lisinopril [Zestril] 07/24/24 Metoprolol Tartrate 07/24/24 Rivaroxaban [Xarelto] 07/24/24 Physician Discharge Instructions: Patient was admitted to the hospital for chest pain/unstable angina. He underwent coronary angiogram on 07/24 which showed mild to moderate mid RCA disease and OM1 disease. Moderate mid LAD intramyocardial bridge. Cardiology recommends continuing aggressive medical treatment for coronary artery disease, avoiding nitrates and calcium channel blockers given they may worsen the intramyocardial bridge. Overnight patient has been bradycardic in the high 30s to mid 50s, no pauses noted currently in sinus rhythm. Cardiology recommends discontinuing his metoprolol and have him follow-up in the clinic to arrange for an event monitor. Patient feeling well at this time, denies chest pain or shortness of breath, ambulatory without difficulty. Please discontinue/stop taking metoprolol-either kind You may continue your other home medications including your lisinopril, Xarelto, aspirin, atorvastatin. Please follow-up with Dr. Siddiqi in the clinic Diet: AHA Activity: Ad alessio Followup: Ancelmo Siddiqi MD [ACTIVE - CAN ADMIT] - 2-3 Days NONE,NONE [Primary Care Provider] - 1 Week Time spent managing pt's care (in minutes): 37
--- NOTE | 2024-07-26 07:01 | ECHO ---
HEIGHT: 6 ft 1 in WEIGHT: 230 lb 0 oz DATE OF STUDY: 07/25/[address]: Jackie Peralta NP 2-DIMENSIONAL: YES M.MODE: YES DOPPLER: YES COLOR FLOW: YES TDS: PORTABLE: YES DEFINITY: BUBBLE STUDY: DIAGNOSIS: CHEST PAIN RULE OUT CARDIAC HISTORY: CATHERIZATION: NO SURGERY: YES PROSTHETIC VALVE: NO PACEMAKER: NO MEASUREMENTS (cm) DIASTOLIC (NORMALS) SYSTOLIC (NORMALS) IVSd 1.3 (0.6-1.2) LA Diam 5.6 (1.9-4.0) LVEF 55-60% LVIDd 5.1 (3.5-5.7) LVIDs 4.4 (2.0-3.5) %FS LVPWd 1.3 (0.6-1.2) Ao Diam 3.0 (2.0-3.7) 2 DIMENSIONAL ASSESSMENT: RIGHT ATRIUM: ENLARGED LEFT ATRIUM: SEVERE DILATED RIGHT VENTRICLE: NORMAL LEFT VENTRICLE: NORMAL TRICUSPID VALVE: NORMAL MITRAL VALVE: NORMAL PULMONIC VALVE: NORMAL AORTIC VALVE: NORMAL PERICARDIAL EFFUSION: NONE AORTIC ROOT: NORMAL LEFT VENTRICULAR WALL MOTION: NORMAL DOPPLER/COLOR FLOW: DIASTOLIC DYSFUNCTION COMMENTS: 1. NORMAL LEFT VENTRICULAR SYSTOLIC FUNCTION, EJECTION FRACTION 55-60%, NORMAL WALL MOTION 2. DIASTOLIC DYSFUNCTION 3. SEVERE DILATED LEFT ATRIUM TECHNOLOGIST: WILLIAMS SOLIS
== END 2024-07-25 14:40 | disposition home or self-care (01) ==
LOC: ER 08:54 → ERHOLD 13:07 → 4TH 16:40
PROVIDERS: ADMIT Internal Medicine; ATTEND Hospitalist
PROC: 4A023N7 Measurement of Cardiac Sampling and Pressure, Left Heart, Percutaneous Approach (ICD-10-PCS; principal; 2024-07-24)
PROC: B2111ZZ Fluoroscopy of Multiple Coronary Arteries using Low Osmolar Contrast (ICD-10-PCS; 2024-07-24)
DX: I25.110 Atherosclerotic heart disease of native coronary artery with unstable angina pectoris (principal); I77.1 Stricture of artery; Q24.5 Malformation of coronary vessels; I48.91 Unspecified atrial fibrillation; R00.1 Bradycardia, unspecified; I10 Essential (primary) hypertension; R11.0 Nausea; R42 Dizziness and giddiness; F17.210 Nicotine dependence, cigarettes, uncomplicated; Z71.6 Tobacco abuse counseling; Z79.01 Long term (current) use of anticoagulants; Z79.82 Long term (current) use of aspirin; Z79.899 Other long term (current) drug therapy
CPT/HCPCS: 93005; 93306; 85025 ×2; 80048 ×2; 36415 ×2; 83735 ×2; 84100; 85610; 80061; 80076; 84443; 83036; 84484 ×3; 84439; 83880; 70450; 71045; 93458; 76937; 94640; 99285; C1893; Q9966; J1644; J2001; J7613; J7644; J2250; J3010; G0378 ×6; J7040; 99152; J0461